=== PATIENT | male | born 1980 | race Caucasian/White ===

== ENCOUNTER 2017-01-09 12:02 | Inpatient (IN) | payer OTHER ==
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
[2017-01-09] MEDS ORDERED: SODIUM CHLORIDE 1,000 ML IV STA (13:02)
[2017-01-09] MEDS ORDERED: ONDANSETRON 4 MG/2 ML VIAL IVPUSH ONE (13:03)
[2017-01-09] MEDS ORDERED: ONDANSETRON 4 MG/2 ML VIAL ONE (13:17)
[2017-01-09 13:30] LABS: BASOPHIL 0.2 % (0-2.0); EOSINOPHIL 0.8 % (0-4.5); MCH 28.7 pg (25.7-33.7); MCHC 33.6 g/dl (32.0-35.9); MEAN CELL VOLUME 85.3 fl (80-96); MEAN PLT VOLUME 9.8 fl (7.5-11.1); NEUTROPHILS 83.9 % (42.8-82.8); PLATELET COUNT 159 K/MM3 (134-434); RDW 15.6 % (11.9-15.9); WHITE BLOOD COUNT 16.9 K/mm3 (4.0-10.0)
[2017-01-09 13:32] LABS: URINE APPEARANCE CLOUDY; URINE BILIRUBIN NEGATIVE (NEGATIVE); URINE COLOR YELLOW; URINE GLUCOSE (UA) NEGATIVE (NEGATIVE); URINE KETONE NEGATIVE (NEGATIVE); URINE NITRITE POSITIVE (NEGATIVE); URINE PROTEIN NEGATIVE (NEGATIVE); URINE UROBILINOGEN NEGATIVE E.U./dl (0.2-1.0)
[2017-01-09 13:38] LABS: URINE BLOOD 1+ (NEGATIVE); URINE LEUK ESTERASE 3+ (NEGATIVE)
[2017-01-09 13:42] LABS: URINE BACTERIA RARE /hpf (NONE SEEN); URINE MUCUS RARE; URINE RBC 7 /hpf (0-3); URINE WBC 68 /hpf (3-5)
[2017-01-09 13:49] LABS: ALBUMIN 3.2 g/dl (3.4-5.0); ALK PHOS 111 U/L (45-117); ANION GAP 10 (8-16); BILIRUBIN,TOTAL 0.7 mg/dL (0.2-1.0); CALCIUM 9.1 mg/dL (8.5-10.1); CO2 27 mmol/L (21-32); COCKROFT - GAULT 133.38; CREATININE 0.9 mg/dL (0.7-1.3); GLUCOSE,RANDOM 94 mg/dL (74-106); SGOT/AST 17 U/L (15-37); SGPT/ALT 21 U/L (12-78)
[2017-01-09] MEDS ORDERED: ACETAMINOPHEN 1000 MG/100 ML VIAL (NON FORMULARY) IVPB ONE (14:00)
[2017-01-09] MEDS ORDERED: CEFTRIAXONE 250 MG in DEXTROSE 5%-WATER - 50 ML IVPB ONE (14:01)
[2017-01-09] MEDS ORDERED: ACETAMINOPHEN INJECTION 100 ML IVPB ONE (14:03)
[2017-01-09] MEDS ORDERED: SODIUM CHLORIDE 0.9% 1000 ML INFUS.BAG IV PRN (14:22)
[2017-01-09] MEDS ORDERED: CEFTRIAXONE 1,000 MG in DEXTROSE 5%-WATER - 50 ML IVPB ONE (14:50)
[2017-01-09 14:51] LABS: VENOUS BLOOD GAS HCO3 22.6 meq/L (19-25); VENOUS PH 7.45 (7.32-7.42)
[2017-01-09] MEDS ORDERED: CEFTRIAXONE 50 ML ONE (15:06)
--- NOTE | 2017-01-09 15:13 | PDOC ---
*Physical Exam - Vital Signs Last Vital Signs Temp Pulse Resp BP Pulse Ox 101.7 F H 110 H 18 117/63 100 01/09/17 14:00 01/09/17 12:20 01/09/17 12:20 01/09/17 12:20 01/09/17 12:20 ED Treatment Course - LABORATORY CBC & Chemistry Diagram: 01/09/17 13:15 01/09/17 13:15 - ADDITIONAL ORDERS Additional order review: Laboratory Results 01/09/17 01/09/17 01/09/17 14:44 14:30 13:15 VBG pH 7.45 H POC VBG pCO2 33.4 L POC VBG pO2 97.6 H Mixed VBG HCO3 22.6 Sodium 140 Potassium 3.8 Chloride 103 Carbon Dioxide 27 Anion Gap 10 BUN 13 Creatinine 0.9 Creat Clearance w eGFR > 60 Random Glucose 94 Calcium 9.1 Total Bilirubin 0.7 AST 17 D ALT 21 Alkaline Phosphatase 111 Creatine Kinase Cancelled Troponin I Cancelled Total Protein 7.0 Albumin 3.2 L Urine Color Urine Appearance Urine pH Urine Protein Urine Glucose (UA) Urine Ketones Urine Blood Urine Nitrite Urine Bilirubin Urine Urobilinogen Ur Leukocyte Esterase Urine RBC Urine WBC Urine Bacteria Urine Mucus 01/09/17 13:15 VBG pH POC VBG pCO2 POC VBG pO2 Mixed VBG HCO3 Sodium Potassium Chloride Carbon Dioxide Anion Gap BUN Creatinine Creat Clearance w eGFR Random Glucose Calcium Total Bilirubin AST ALT Alkaline Phosphatase Creatine Kinase Troponin I Total Protein Albumin Urine Color Yellow Urine Appearance Cloudy Urine pH 7.0 Urine Protein Negative Urine Glucose (UA) Negative Urine Ketones Negative Urine Blood 1+ H Urine Nitrite Positive Urine Bilirubin Negative Urine Urobilinogen Negative Ur Leukocyte Esterase 3+ H Urine RBC 7 Urine WBC 68 Urine Bacteria Rare Urine Mucus Rare 01/09/17 13:15 RBC 4.57 MCV 85.3 MCHC 33.6 RDW 15.6 MPV 9.8 Neutrophils % 83.9 H Lymphocytes % 6.7 L D Monocytes % 8.4 Eosinophils % 0.8 D Basophils % 0.2 - Medications Given in the ED: ED Medications Discontinued Medications Generic Name Dose Route Start Last Admin Trade Name Freq PRN Reason Stop Dose Admin Acetaminophen 1,000 mg 01/09/17 14:00 01/09/17 14:06 Ofirmev Injection - IVPB 01/09/17 14:01 1,000 mg ONCE ONE Administration Sodium Chloride 1,000 mls @ 1,000 mls/hr 01/09/17 13:02 01/09/17 13:22 Normal Saline - IV 01/09/17 14:01 1,000 mls/hr ASDIR STA Administration Ondansetron HCl 4 mg 01/09/17 13:03 01/09/17 13:22 Zofran Injection IVPUSH 01/09/17 13:04 4 mg ONCE ONE Administration Medical Decision Making - Medical Decision Making 01/09/17 15:12 Patient seen and evaluated with the nurse practitioner. I agree with the overall evaluation, assessment, and management with the following summary of visit: 36-year-old male with paraplegia with neurogenic bladder requiring suprapubic catheter who presents with UTI/sepsis. Sepsis protocol initiated, broad-spectrum antibiotics, IV fluid resuscitation, antipyretics, admission. *DC/Admit/Observation/Transfer Diagnosis at time of Disposition: Urinary tract infection Qualifiers: Urinary tract infection type: catheter-associated UTI Indwelling urinary catheter type: cystostomy catheter Encounter type: initial encounter Qualified Code(s): T83.510A - Infection and inflammatory reaction due to cystostomy catheter, initial encounter Sepsis Qualifiers: Sepsis type: sepsis due to unspecified organism Qualified Code(s): A41.9 - Sepsis, unspecified organism - Discharge Dispostion Condition at time of disposition: Stable
[2017-01-09 15:15] LABS: INR 1.12 (0.82-1.09); PROTHROMBIN TIME (PATIENT) 12.4 SEC (9.98-11.88)
[2017-01-09 15:18] LABS: ACTIVATED PTT 37.9 SECONDS (26.9-34.4)
[2017-01-09 15:54] LABS: TROPONIN I < 0.02 ng/ml (0.00-0.05)
[2017-01-09 18:37] VITALS: BMI 24.5
[2017-01-09] MEDS: HEPARIN NA (PORCINE) 5,000 UNITS/ML 1ML VIAL SQ SCH (22:50)
[2017-01-09] MEDS ORDERED: ONDANSETRON 4 MG/2 ML VIAL IVPB PRN (23:41)
[2017-01-10] MEDS: HEPARIN NA (PORCINE) 5,000 UNITS/ML 1ML VIAL SQ SCH ×2 (11:20→22:34)
--- NOTE | 2017-01-10 11:37 | EKG ---
Test Reason : Blood Pressure : / mmHG Vent. Rate : 072 BPM Atrial Rate : 072 BPM P-R Int : 136 ms QRS Dur : 082 ms QT Int : 378 ms P-R-T Axes : 038 026 022 degrees QTc Int : 413 ms NORMAL SINUS RHYTHM NORMAL ECG NO PREVIOUS ECGS AVAILABLE Confirmed by KATIE AUSTIN MD ([id number]) on 01/10/2017 11:36:49 AM Referred By: Confirmed By:KATIE AUSTIN MD
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
[2017-01-10] MEDS: PIPERACILLIN/TAZOB 3.375 GM/50 ML PRE-DOCKED IVPB SCH (22:00)
[2017-01-10] MEDS: DEXTROSE 5%-0.45% SALINE 1,000 ML IV SCH (22:29)
[2017-01-10] MEDS: GENTAMICIN IVPB SCH (22:35)
[2017-01-10] MEDS: WATER IVPB SCH (22:35)
[2017-01-10] MEDS: DEXTROSE 5% IVPB SCH (22:35)
[2017-01-10] MEDS: COLLAGENASE CLOSTRIDIUM HIST. 30 GRAMS TUBE TP SCH (22:41)
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
[2017-01-10] MEDS ORDERED: ONDANSETRON 4 MG/2 ML VIAL IVPB PRN (22:54)
[2017-01-10] MEDS: METOCLOPRAMIDE HCL INJECTION 10 MG/2 ML VIAL IVPB SCH (23:20)
[2017-01-11] MEDS: PIPERACILLIN/TAZOB 3.375 GM/50 ML PRE-DOCKED IVPB SCH ×4 (02:12→20:36)
[2017-01-11] MEDS: METOCLOPRAMIDE HCL INJECTION 10 MG/2 ML VIAL IVPB SCH ×2 (06:36→16:35)
[2017-01-11] MEDS: DEXTROSE 5%-0.45% SALINE 1,000 ML IV SCH ×2 (06:50→19:05)
--- NOTE | 2017-01-11 09:27 | PN ---
Progress Note (short form) - Note Progress Note: feeling better today / nausea resolved tolerated all breakfast ??fever last night ( low grade(100.8)/ "sweating all night -- but improved early this am Vital Signs Period Temp Pulse Resp BP Sys/Wheeler Pulse Ox Last 24 Hr 99 F-100.8 F 18-28 103-133/46-71 98 seen and examined in room comfortable neck supple heart reg S1/S2 Lungs clear bilat abd soft / anatomical deformity unchanged supra pubic cath no d/c from site ext no edema Microbiology 01/09/17 14:23 Blood - Peripheral Venous Blood Culture - Preliminary NO GROWTH OBTAINED AFTER 24 HOURS, INCUBATION TO CONTINUE FOR 4 DAYS. 01/09/17 14:23 Blood - Peripheral Venous Blood Culture - Preliminary NO GROWTH OBTAINED AFTER 24 HOURS, INCUBATION TO CONTINUE FOR 4 DAYS. 01/09/17 13:15 Urine - Urine - Catheterized Urine Culture - Preliminary Lactose Fermenting Neg Bacilli Non Lactose Fermenting Gnb Group D Strep Or Entero Coccus Active Medications Acetaminophen (Tylenol -) 650 mg PO Q6H PRN PRN Reason: FEVER OR PAIN Collagenase (Santyl -) 1 applic TP DAILY [facility] Last Admin: 01/10/17 22:41 Dose: Not Given Heparin Sodium (Porcine) (Heparin -) 5,000 unit SQ BID [facility] Last Admin: 01/10/17 22:34 Dose: 5,000 unit Dextrose/Sodium Chloride (D5-1/2ns -) 1,000 mls @ 100 mls/hr IV ASDIR [facility] Last Admin: 01/11/17 06:50 Dose: 100 mls/hr Gentamicin Sulfate 180 mg/ (Dextrose) 254.5 mls @ 250 mls/hr IVPB DAILY@2200 [facility] Stop: 01/12/17 23:02 Last Admin: 01/10/17 22:35 Dose: 250 mls/hr Metoclopramide HCl (Reglan Injection -) 10 mg IVPB Q8H [facility] Stop: 01/11/17 15:01 Last Admin: 01/11/17 06:36 Dose: 10 mg Ondansetron HCl (Zofran Injection) 8 mg IVPB Q6H PRN PRN Reason: NAUSEA AND/OR VOMITING Piperacillin Sod/Tazobactam Sod (Zosyn 3.375gm Ivpb (Pre-Docked)) 3.375 gm IVPB Q6H-IV PRINCE PRN Reason: Protocol Last Admin: 01/11/17 02:12 Dose: 3.375 gm Sodium Chloride (Normal Saline -) 830 ml IV Q20M PRN PRN Reason: MAP<65mm Hg OR SBP <90 Last Admin: 01/09/17 15:22 Dose: 830 ml Problem List - Problems (1) Urinary tract infection Assessment/Plan: antibiotics per ID Gent #2 clinically improved Code(s): N39.0 - URINARY TRACT INFECTION, SITE NOT SPECIFIED Qualifiers: Urinary tract infection type: catheter-associated UTI Indwelling urinary catheter type: cystostomy catheter Encounter type: initial encounter Qualified Code(s): T83.510A - Infection and inflammatory reaction due to cystostomy catheter, initial encounter; N39.0 - Urinary tract infection, site not specified (2) Fever Assessment/Plan: low grade temp last night improved continue abx Code(s): R50.9 - FEVER, UNSPECIFIED (3) Leukocytosis Code(s): D72.829 - ELEVATED WHITE BLOOD CELL COUNT, UNSPECIFIED Qualifiers: (4) Paraplegia following spinal cord injury Code(s): G82.20 - PARAPLEGIA, UNSPECIFIED (5) Nausea & vomiting Assessment/Plan: resolved tolerating PO well Code(s): R11.2 - NAUSEA WITH VOMITING, UNSPECIFIED
[2017-01-11 09:42] LABS: BASOPHIL 0.3 % (0-2.0); EOSINOPHIL 0.8 % (0-4.5); MCH 28.6 pg (25.7-33.7); MCHC 33.3 g/dl (32.0-35.9); MEAN CELL VOLUME 85.7 fl (80-96); MEAN PLT VOLUME 9.9 fl (7.5-11.1); NEUTROPHILS 80.3 % (42.8-82.8); PLATELET COUNT 144 K/MM3 (134-434); RDW 15.7 % (11.9-15.9); WHITE BLOOD COUNT 11.5 K/mm3 (4.0-10.0)
[2017-01-11] MEDS: COLLAGENASE CLOSTRIDIUM HIST. 30 GRAMS TUBE TP SCH (10:27)
[2017-01-11] MEDS: HEPARIN NA (PORCINE) 5,000 UNITS/ML 1ML VIAL SQ SCH ×2 (10:28→22:12)
[2017-01-11 10:41] LABS: COCKROFT - GAULT 131.07
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
[2017-01-11] MEDS: POLYETHYLENE GLYCOL 3350 119 GM BTL PO SCH ×2 (16:38→22:12)
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
[2017-01-11] MEDS: GENTAMICIN IVPB SCH (22:12)
[2017-01-11] MEDS: WATER IVPB SCH (22:12)
[2017-01-11] MEDS: DEXTROSE 5% IVPB SCH (22:12)
[2017-01-11] MEDS: ACETAMINOPHEN 325 MG TABLET (FP) PO PRN (22:16)
[2017-01-12] MEDS: PIPERACILLIN/TAZOB 3.375 GM/50 ML PRE-DOCKED IVPB SCH ×4 (03:43→21:00)
[2017-01-12] MEDS: ACETAMINOPHEN 325 MG TABLET (FP) PO PRN ×2 (05:56→21:47)
[2017-01-12] MEDS: POLYETHYLENE GLYCOL 3350 119 GM BTL PO SCH ×3 (05:57→21:46)
[2017-01-12] MEDS: DEXTROSE 5%-0.45% SALINE 1,000 ML IV SCH ×2 (07:36→21:44)
[2017-01-12 08:20] LABS: BASOPHIL 0.2 % (0-2.0); EOSINOPHIL 0.6 % (0-4.5); MCHC 33.5 g/dl (32.0-35.9); MEAN CELL VOLUME 86.7 fl (80-96); MEAN PLT VOLUME 10.2 fl (7.5-11.1); PLATELET COUNT 153 K/MM3 (134-434); RDW 15.4 % (11.9-15.9); WHITE BLOOD COUNT 14.2 K/mm3 (4.0-10.0)
[2017-01-12] MEDS: HEPARIN NA (PORCINE) 5,000 UNITS/ML 1ML VIAL SQ SCH ×2 (10:13→21:45)
[2017-01-12] MEDS: COLLAGENASE CLOSTRIDIUM HIST. 30 GRAMS TUBE TP SCH (10:14)
[2017-01-12 17:58] LABS: CALCIUM 9.1 mg/dL (8.5-10.1); COCKROFT - GAULT 100.82; CREATININE 1.3 mg/dL (0.7-1.3)
[2017-01-12] MEDS: GENTAMICIN IVPB SCH (21:46)
[2017-01-12] MEDS: DEXTROSE 5% IVPB SCH (21:46)
[2017-01-12] MEDS: WATER IVPB SCH (21:46)
[2017-01-13] MEDS: PIPERACILLIN/TAZOB 3.375 GM/50 ML PRE-DOCKED IVPB SCH ×3 (02:06→21:42)
[2017-01-13] MEDS: POLYETHYLENE GLYCOL 3350 119 GM BTL PO SCH ×2 (06:20→22:14)
[2017-01-13] MEDS: HEPARIN NA (PORCINE) 5,000 UNITS/ML 1ML VIAL SQ SCH ×2 (10:18→22:02)
[2017-01-13] MEDS: COLLAGENASE CLOSTRIDIUM HIST. 30 GRAMS TUBE TP SCH (10:21)
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
[2017-01-13 12:49] LABS: BASOPHIL 0.3 % (0-2.0); EOSINOPHIL 0.7 % (0-4.5); MCH 28.7 pg (25.7-33.7); MCHC 33.4 g/dl (32.0-35.9); MEAN CELL VOLUME 86.1 fl (80-96); MEAN PLT VOLUME 9.9 fl (7.5-11.1); NEUTROPHILS 78.5 % (42.8-82.8); PLATELET COUNT 152 K/MM3 (134-434); RDW 15.5 % (11.9-15.9); WHITE BLOOD COUNT 13.3 K/mm3 (4.0-10.0)
[2017-01-13 13:25] LABS: CALCIUM 8.9 mg/dL (8.5-10.1); COCKROFT - GAULT 131.07
[2017-01-13] MEDS ORDERED: SUCCINYLCHOLINE CHLORIDE 200 MG/10 ML VIAL ONE (15:01)
[2017-01-13] MEDS ORDERED: MIDAZOLAM HCL 2 MG/2 ML SINGLE DOSE VIAL ONE (15:01)
[2017-01-13] MEDS ORDERED: PROPOFOL 20 ML ONE (15:01)
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
[2017-01-13] MEDS ORDERED: ROCURONIUM BROMIDE 50 MG/5 ML VIAL ONE (15:41)
[2017-01-13] MEDS ORDERED: PIPERACILLIN/TAZOBACTAM 2.25 GM VIAL IVPB ONE (15:43)
[2017-01-13] MEDS ORDERED: NEOSTIGMINE METHYLSULFATE 0.5 MG/ML - 10 ML MDV ONE (16:10)
[2017-01-13] MEDS ORDERED: GLYCOPYRROLATE 0.2 MG/1 ML VIAL ONE (16:11)
[2017-01-13] MEDS ORDERED: LACTATED RINGERS SOLUTION 1,000 ML IV SCH (16:30)
[2017-01-13] MEDS ORDERED: SODIUM CHLORIDE 0.9% 1000 ML INFUS.BAG IV PRN (16:42)
[2017-01-13] MEDS ORDERED: DEXTROSE 5%-0.45% SALINE 1,000 ML IV SCH (16:42)
[2017-01-13] MEDS ORDERED: ACETAMINOPHEN 325 MG TABLET (FP) PO PRN (16:42)
[2017-01-13] MEDS ORDERED: ONDANSETRON 4 MG/2 ML VIAL IVPB PRN (16:42)
[2017-01-14] MEDS: PIPERACILLIN/TAZOB 3.375 GM/50 ML PRE-DOCKED IVPB SCH ×3 (02:42→14:39)
[2017-01-14] MEDS: POLYETHYLENE GLYCOL 3350 119 GM BTL PO SCH ×2 (06:10→13:55)
[2017-01-14] MEDS ORDERED: PT OWN MED DRAWER 7, Y5N ONE (09:25)
[2017-01-14] MEDS: HEPARIN NA (PORCINE) 5,000 UNITS/ML 1ML VIAL SQ SCH ×2 (09:30→09:38)
[2017-01-14] MEDS ORDERED: COLLAGENASE CLOSTRIDIUM HIST. 30 GRAMS TUBE TP SCH (10:00)
--- NOTE | 2017-01-14 10:30 | OP ---
DATE OF OPERATION: 01/13/2017 PREOPERATIVE DIAGNOSIS: Left testicular torsion. POSTOPERATIVE DIAGNOSIS: Left testicular torsion. PROCEDURE PERFORMED: Right orchiopexy, left orchiectomy. SURGEON: Tucker Cohen MD FINDINGS: Left testicular torsion. SPECIMEN: Left testicle and cord. ESTIMATED BLOOD LOSS: Minimal. INDICATIONS: The patient is a 36-year-old male who is paraplegic and insensate below his belly button. He was noted to have testicular swelling during his inpatient stay for UTI and sepsis. His bladder is normally drained with a suprapubic tube. Ultrasound performed today revealed no blood flow on the left side. The right testicle appeared to be normal. He was brought to the OR for scrotal exploration, and possible orchiectomy and orchiopexy. DESCRIPTION OF PROCEDURE: The patient was brought to the OR and placed on the table in the supine position. He was given general anesthesia and IV antibiotics. The groin was prepped and draped sterilely. A time-out was performed. A midline incision was made in the scrotum. The left hemiscrotum was severely edematous, with lots of fibrinous tissue in the layers. Ultimately the tunica vaginalis was opened and the left testicle was visualized. The epididymis was purple and the testicle itself appeared to be black. The cord itself also had a large degree of fibrinous inflammation surrounding the cord. This process appears to have been long-standing, based on this observation. The testicle was manually detorsed and warmed. During this time, a right orchiopexy was performed with 3-point fixation of the right testicle. Returning to the left testicle, it did not appear in appearance or consistency. A Doppler ultrasound was used and no blood flow could be identified. Left orchiectomy was performed. The cord was taken with 2 Christal clamps and excised. The cord was oversewn with 2-0 Vicryl suture. Good hemostasis was maintained. The skin was then closed in 2 layers again with 2-0 Vicryl suture. Fluffs and scrotal support were applied. The patient was woken up. TUCKER COHEN M.D. [id number]
--- NOTE | 2017-01-14 11:35 | PN ---
Progress Note (short form) - Note Progress Note: s/p left orchiectomy, rt orchiopexy yesterday Tm 102 wound clean and dry mitchell urine clear abx as per ID
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
[2017-01-14 15:28] VITALS: BP 107/57; PULSE 66; TEMP 99.6
[2017-01-14] MEDS ORDERED: AMINO ACIDS/PROTEIN HYDROLYS 30 ML LIQUID.PKT PO SCH (17:30)
--- NOTE | 2017-01-14 18:17 | PN ---
Progress Note, Physician Chief Complaint: s/p left orchiectomy under general anesthesia History of Present Illness: post op day one - Current Medication List Current Medications: Active Medications Acetaminophen (Tylenol -) 650 mg PO Q6H PRN PRN Reason: FEVER OR PAIN Last Admin: 01/14/17 06:06 Dose: 650 mg Amino Acids (Prosource No Carb Liquid Pkt) 30 ml PO BID@0800,1730 [facility] Last Admin: 01/14/17 17:21 Dose: 30 ml Collagenase (Santyl -) 1 applic TP DAILY [facility] Last Admin: 01/14/17 13:33 Dose: 1 applic Fentanyl (Sublimaze Injection -) 25 mcg IVPUSH [id number] PRN PRN Reason: PAIN Stop: 01/16/17 16:30 Heparin Sodium (Porcine) (Heparin -) 5,000 unit SQ BID [facility] Last Admin: 01/14/17 09:38 Dose: 5,000 unit Ondansetron HCl (Zofran Injection) 8 mg IVPB Q6H PRN PRN Reason: NAUSEA AND/OR VOMITING Last Admin: 01/14/17 13:32 Dose: 8 mg Piperacillin Sod/Tazobactam Sod (Zosyn 3.375gm Ivpb (Pre-Docked)) 3.375 gm IVPB Q6H-IV PRINCE PRN Reason: Protocol Last Admin: 01/14/17 14:39 Dose: 3.375 gm Polyethylene Glycol (Miralax (For Daily Use) -) 17 gm PO TID [facility] Last Admin: 01/14/17 13:55 Dose: Not Given - Objective Vital Signs: Vital Signs Temperature 99.6 F 01/14/17 15:27 Pulse Rate 66 01/14/17 15:27 Respiratory Rate 18 01/14/17 15:27 Blood Pressure 107/57 01/14/17 15:27 O2 Sat by Pulse Oximetry (%) 98 01/13/17 21:00 Constitutional: Yes: Well Nourished Cardiovascular: Yes: WNL Respiratory: Yes: WNL Gastrointestinal: Yes: Vomiting Labs: CBC, BMP 01/13/17 12:09 01/13/17 12:09 INR, PTT INR 1.12 (0.82-1.09) 01/09/17 14:30 Assessment/Plan No adverse effect from anesthetic, patient continues to have nausea and vomiting unchanged from before the anesthetic. Patient has no pain as he is a T12 paraplegic. Dept of anesthesia will sign off care at this time
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
--- NOTE | 2017-01-18 15:43 | PATH ---
Surgical Pathology Report Patient Name: RICHARD MONTENEGRO Med. Rec. #: [id number] /Age/Gender: 1980 (Age: 36) / M Account: [id number] Location: [facility] MED/SURG Taken: 01/13/2017 Received: 01/17/2017 Reported: 01/18/2017 Physicians: Tucker Cohen M.D. Specimen(s) Received LEFT TESTICLE & CORD Clinical History Left testicular torsion Final Diagnosis TESTICLE AND CORD, LEFT, ORCHIECTOMY: INFARCTED TESTIS, EPIDIDYMIS AND SPERMATIC CORD WITH VASCULAR CONGESTION, FOCI OF HEMORRHAGE, SURROUNDING ACTIVE INFLAMMATION, AND FIBRINOHEMORRHAGIC EXUDATE. NO MALIGNANCY IDENTIFIED. Comment: Clinical history of left testicular torsion is noted. The histologic findings are compatible with the clinical impression. Electronically Signed Emanuel Mccord M.D. Gross Description Received in formalin labeled "left testicle and cord" is an 82 g orchectomy specimen including a testis (5.2 x 3.1 x 3.0 cm), epididymis (4.0 x 1.8 x 1.5 cm), and an attached 5 cm in length portion of spermatic cord. The tunica appears focally disrupted and displays a 4.0 x 3.2 x 2.0 cm attached portion of focally hemorrhagic, vascular soft tissue. The testis displays shankar, unremarkable parenchyma. [employer] sections are submitted in 13 cassettes as follows: 1-spermatic cord margin of resection; 5-8-ukcozfuuxs parenchyma with epididymis; 1-3-wwrgozjrrw parenchyma with attached vascular soft tissue; 7-82-dwogaecnvd sections of attached vascular soft tissue; 50-41-dlltmfoxfk quality audit representative testicular parenchyma; 13-additional section of spermatic cord. /01/17/2017 [facility]/01/17/2017
== END 2017-01-14 19:50 | disposition left against medical advice (07) | DRG 952 ==
LOC: JER 12:02 → JERBED 14:50 → J8W 16:20
PROVIDERS: ADMIT Family Medicine; ATTEND Nurse Practitioner Acute Care
PROC: 0VQ90ZZ Repair Right Testis, Open Approach (ICD-10-PCS; 2017-01-13)
PROC: 0VBB0ZZ Excision of Left Testis, Open Approach (ICD-10-PCS; principal; 2017-01-13 15:00)
DX: T83.510A Infection and inflammatory reaction due to cystostomy catheter, initial encounter (principal); G82.20 Paraplegia, unspecified; A41.89 Other specified sepsis; N31.8 Other neuromuscular dysfunction of bladder; F43.10 Post-traumatic stress disorder, unspecified; D72.829 Elevated white blood cell count, unspecified; N39.0 Urinary tract infection, site not specified; B95.2 Enterococcus as the cause of diseases classified elsewhere; R11.2 Nausea with vomiting, unspecified; K43.9 Ventral hernia without obstruction or gangrene; K59.00 Constipation, unspecified; N44.00 Torsion of testis, unspecified; L89.153 Pressure ulcer of sacral region, stage 3; L89.892 Pressure ulcer of other site, stage 2; Z99.3 Dependence on wheelchair
CPT/HCPCS: 36415; 71010-TC; 74176-TC; 76870-TC; 80048; 80053; 81003; 81015; 82550; 82553; 82803; 83605; 84484; 85025; 85610; 85730; 86850; 86900; 86901; 87040; 87081; 87086; 87186; 87324; 87449; 88305-TC; 93005; 93010; 94760; 99285-25; J1644